=== PATIENT | female | born 1970 | race Caucasian/White ===

== ENCOUNTER 2020-08-25 02:54 | Inpatient (IN) | payer OTHER ==
[2020-08-25 03:45] LABS: BASOPHIL 0.9 % (0-2); EOSINOPHIL 0.8 % (0-5); HCT 45.8 % (37.0-47.0); HGB 14.4 g/dl (12.5-16.0); LYMPHOCYTE 25.4 % (15-48); MCH 33.3 pg (25.0-31.0); MCHC 31.4 g/dL (32.0-36.0); MONOCYTE 6.6 % (0-12); MPV 13.1 fL (6.0-9.5); NRBC 0; PLT 231 K/uL (150-400); RBC 4.32 M/uL (4.20-5.40); RDW 13.9 % (11.5-14.0)
[2020-08-25 03:47] LABS: INR 1.35 (0.9-1.2); PROTHROMBIN TIME 15.8 SECONDS (11.4-13.6)
[2020-08-25 03:48] LABS: PTT 28.3 SECONDS (22.2-34.7)
[2020-08-25 04:07] LABS: ALBUMIN 3.1 g/dL (3.4-5.0); BILIRUBIN - DIRECT 0.4 mg/dL (0.00-0.20); BILIRUBIN - TOTAL 1.2 mg/dL (0.2-1.0); BUN/CREAT RATIO (CALC) 14.8 RATIO; C-REACTIVE PROTEIN 2.5 mg/dL (<=0.90); CREATININE 1.76 mg/dL (0.51-0.95); PHOSPHORUS 4.7 mg/dL (2.6-4.7); POTASSIUM 4.1 mmol/L (3.5-5.1); TOTAL PROTEIN 7.1 g/dL (6.4-8.2)
[2020-08-25 04:58] LABS: CORONAVIRUS 2019 SARS-COV-2 NEGATIVE (NEGATIVE); INFLUENZA A NAA NEGATIVE (NEGATIVE)
[2020-08-25 09:49] LABS: BILIRUBIN 2+ mg/dL (NEGATIVE); BLOOD NEGATIVE Ery/uL (NEGATIVE); GLUCOSE (U) NORMAL (NORMAL); LEUKOCYTES NEGATIVE Leu/uL (NEGATIVE); NITRITE NEGATIVE (NEGATIVE); PROTEIN 2+ mg/dL (NEGATIVE); SPECIFIC GRAVITY >=1.030 (1.001-1.030); UROBILINOGEN 0.2 mg/dL (0.2-1.0); pH 5.5 (5.0-9.0)
[2020-08-25 09:50] LABS: CLARITY SLIGHTLY HAZY (CLEAR); COLOR AMBER (YELLOW)
[2020-08-25 09:55] LABS: URINARY RBC RARE; URINARY WBC 20-50
[2020-08-25 09:56] LABS: BACTERIA TRACE; SQUAMOUS EPITHELIAL CELLS RARE
[2020-08-25 10:34] LABS: URINE CREATININE >400.00 mg/dL (29.00-226.00); URINE TOTAL PROTEIN-RANDOM 164.7 mg/dL (<11.9)
[2020-08-25 11:17] LABS: FT4 (FREE T4) 1.4 ng/dL (0.76-1.46)
[2020-08-25] MEDS ORDERED: AZATHIOPRINE50 MG PO (12:51)
[2020-08-25] MEDS ORDERED: ESOMEPRAZOLE MA20 MG PO (12:52)
[2020-08-25] MEDS ORDERED: CLARITIN10 MG PO (12:54)
[2020-08-25] MEDS ORDERED: IRON18 MG PO (12:54)
[2020-08-25] MEDS ORDERED: VITAMIN B-121000 MC1 PO (12:54)
[2020-08-25] MEDS ORDERED: PRENATAL FORMU1 EACH PO (12:55)
[2020-08-25] MEDS ORDERED: VITAMIN D3 COM1 EACH PO (12:56)
[2020-08-25] MEDS ORDERED: TENORMIN50 MG PO (12:57)
[2020-08-25] MEDS ORDERED: METFORMIN HCL500 MG PO (12:57)
[2020-08-25] MEDS ORDERED: PIRMELLA PO (12:58)
[2020-08-26 06:53] LABS: BASOPHIL 0.7 % (0-2); HCT 43.9 % (37.0-47.0); HGB 13.6 g/dl (12.5-16.0); MCH 32.9 pg (25.0-31.0); MCV 106.3 fL (78.0-100.0); MONOCYTE 7.8 % (0-12); MPV 12.6 fL (6.0-9.5); NEUTROPHIL 71.1 % (41-80); NRBC 0; PLT 175 K/uL (150-400); RBC 4.13 M/uL (4.20-5.40); RDW 13.9 % (11.5-14.0); WBC 9.4 K/uL (4.0-10.5)
[2020-08-26 07:06] LABS: BUN/CREAT RATIO (CALC) 14.5 RATIO; CREATININE 1.73 mg/dL (0.51-0.95); POTASSIUM 4.3 mmol/L (3.5-5.1)
--- NOTE | 2020-08-26 10:55 | NUR ---
PT REPORTS SHE LIVES WITH SPOUSE; PLEASE LET US KNOW OF DISCHARGE NEEDS
[2020-08-26 14:24] LABS: URINE CREATININE 32.44 mg/dL (29.00-226.00)
[2020-08-26 16:11] LABS: ALBUMIN 2.9 g/dL (2.9-4.4); ALPHA-1-GLOBULIN 0.5 g/dL (0.0-0.4); ALPHA-2-GLOBULIN 0.6 g/dL (0.4-1.0); BETA GLOBULIN 1.1 g/dL (0.7-1.3); GAMMA GLOBULIN 0.9 g/dL (0.4-1.8); IMMUNOGLOBULIN A, QN, SERUM 235 mg/dL (87-352); IMMUNOGLOBULIN G, QN, SERUM 953 mg/dL (586-1602); IMMUNOGLOBULIN M, QN, SERUM 41 mg/dL (26-217); M-SPIKE Not Observed g/dL (Not Observed); PROTEIN, TOTAL, SERUM 5.9 g/dL (6.0-8.5)
[2020-08-26 16:47] LABS: URINE TOTAL VOLUME 4200 mL
== END 2020-08-26 12:00 | disposition other institution (70) | DRG 292 ==
LOC: FER 02:54 → FICU 08:02 → FTCU 08:02 → FICU 09:24
PROVIDERS: Internal Medicine Nephrology; Student in an Organized Health Care Education/Training Program; ADMIT Allergy & Immunology Allergy
DX: I11.0 Hypertensive heart disease with heart failure (principal); N17.9 Acute kidney failure, unspecified; K50.90 Crohn's disease, unspecified, without complications; Z68.43 Body mass index [BMI] 50.0-59.9, adult; J90 Pleural effusion, not elsewhere classified; I48.91 Unspecified atrial fibrillation; I42.0 Dilated cardiomyopathy; E83.42 Hypomagnesemia; I50.9 Heart failure, unspecified; E66.9 Obesity, unspecified; G47.33 Obstructive sleep apnea (adult) (pediatric); Z20.822 Contact with and (suspected) exposure to COVID-19; E11.9 Type 2 diabetes mellitus without complications; R80.9 Proteinuria, unspecified; I27.20 Pulmonary hypertension, unspecified; Z79.84 Long term (current) use of oral hypoglycemic drugs; Z79.899 Other long term (current) drug therapy
CPT/HCPCS: 36415; 71045; 76705; 76770; 80048; 80076; 81001; 82570; 82728; 82784; 83615; 83690; 83735; 83880; 84100; 84155; 84156; 84165; 84300; 84439; 84443; 84484; 84540; 84703; 85025; 85610; 85730; 86038; 86140; 86335; 87088; 93005; 93970; J0282; J1160; J1644; J1940; J2405; J3475; J7040; J7050; J7060; U0002